=== PATIENT | male | born 1960 | race Caucasian/White ===

== ENCOUNTER 2024-11-16 12:50 | Outpatient (RCR) | payer MEDICARE, SELFPAY ==
[2024-11-16 13:46] LABS: Creatinine* 0.7 mg/dL (0.5-1.5); Estimated Glomerular Filt Rate 102 ml/min
--- NOTE | 2024-12-07 08:51 | ONC.NURNOTE ---
Dx: Lung cancer
== END 2025-05-15 23:59 | disposition home or self-care (01) ==
LOC: CCIC 12:50
PROVIDERS: Visit Provider Clinical Nurse Specialist
DX: C34.90 Malignant neoplasm of unspecified part of unspecified bronchus or lung (principal)
CPT/HCPCS: 36415; 82565; 99211